=== PATIENT | male | born 1990 | race Caucasian/White ===

== ENCOUNTER 2016-03-26 09:43 | Emergency (ER) | payer OTHER ==
[2016-03-26 09:57] VITALS: BP 124/72
[2016-03-26] MEDS ORDERED: cefTRIAXone VIAL(*) 250 MG VIAL IM ONE (10:20)
[2016-03-26] MEDS ORDERED: Azithromycin TAB* 250 MG PO ONE (10:21)
[2016-03-26] MEDS ORDERED: Lidocaine 1% MPF* 2 ML VIAL ONE (10:31)
--- NOTE | 2016-03-26 10:31 | UC ---
[facility] HPI - HPI Summary HPI Summary: DENTAL PAIN X 7 DAYS , NO FEVER, NO CHILLS PENILE DISCHARGE X 3 DAYS, + DYSURIA, , NO ABDOMINAL PAIN , NO NAUSEA OR VOMITING - History of Current Complaint Chief Complaint: UCDentalProblem Stated Complaint: DENTAL COMPLAINT,PERSONAL Time Seen by Provider: 03/26/16 10:15 Hx Obtained From: Patient Onset/Duration: Gradual Onset, Lasting Days - 5, Still Present Severity: Moderate Aggravating: Chewing Alleviating: Nothing - Allergies/Home Medications Allergies/Adverse Reactions: Allergies Allergy/AdvReac Type Severity Reaction Status Date / Time Meloxicam [From Mobic] Allergy Severe Itching Verified 03/26/16 09:51 Adhesive Tape Allergy Rash Verified 03/26/16 09:51 Tramadol Allergy Rash Verified 03/26/16 09:51 PMH/Surg Hx/FS Hx/Imm Hx Endocrine History Of: Denies: Diabetes, Thyroid Disease, Hyperthyroidism, Hypothyroidism, Dyslipidemia Cardiovascular History Of: Denies: Cardiac Disorders, Hypertension, Pacemaker/ICD, Myocardial Infarction , Congestive Heart Failure, Atrial Fibrillation, Deep Vein Thrombosis, Bleeding Disorders Respiratory History Of: Denies: COPD, Asthma, Bronchitis, Pneumonia, Pulmonary Embolism GI/ History Of: Reports: Gastroesophageal Reflux - He complains of heartburn but does not take anything for it. Denies: Ulcer, Gastrointestinal Bleed, Gall Bladder Disease, Kidney Stones, Diverticulitis, Renal Disease, Urosepsis Neurological History Of: Denies: TIA, CVA, Dementia, Seizures, Migraine Psychological History Of: Denies: Anxiety, Depression, Bipolar Disorder, Schizophrenia, Post Traumatic Stress Disorder Cancer History Of: Denies: Lung Cancer, Colorectal Cancer, Breast Cancer, Prostate Cancer, Cervical Cancer Other History Of: Negative For: HIV, Hepatitis B, Hepatitis C, Anticoagulant Therapy - Surgical History Surgical History: Yes Surgery Procedure, Year, and Place: SX L WRIST FX. Dental extractions 01/15/14. - Family History Known Family History: Positive: Hypertension Family History: no family history of cardio, pulmonary vascular issues - Social History Alcohol Use: None Substance Use Type: None Substance Use Comment - Amount & Last Used: OCCASIONALLY Smoking Status (MU): Heavy Every Day Tobacco Smoker Type: Cigarettes Amount Used/How Often: 1/2 PPD Length of Time of Smoking/Using Tobacco: 10 yrs Have You Smoked in the Last Year: Yes When Did the Patient Quit Smoking/Using Tobacco: taking Chantix - Immunization History Most Recent Influenza Vaccination: Most Recent Tetanus Shot: 2010 Review of Systems Constitutional: Negative Skin: Negative Eyes: Negative ENT: Dental Pain Respiratory: Negative Cardiovascular: Negative Gastrointestinal: Negative Genitourinary: Dysuria All Other Systems Reviewed And Are Negative: Yes Physical Exam Triage Information Reviewed: Yes Appearance: Well-Appearing, No Pain Distress, Well-Nourished Vital Signs: Initial Vital Signs Temp 98.4 F 03/26/16 09:53 Pulse 102 03/26/16 09:53 Resp 16 03/26/16 09:53 BP 124/72 03/26/16 09:53 Pulse Ox 99 03/26/16 09:53 Vital Signs Reviewed: Yes Eyes: Positive: Conjunctiva Clear ENT: Positive: Normal ENT inspection, Hearing grossly normal, Pharynx normal Dental: Positive: Percussion Tenderness @ - #14, Gross Decay/Caries @ - #14 Neck exam: Normal Neck: Positive: Supple, Nontender, No Lymphadenopathy Respiratory: Positive: Chest non-tender, Lungs clear, Normal breath sounds, No respiratory distress Cardiovascular: Positive: RRR, No Murmur, Pulses Normal Abdominal Exam: Normal Abdomen Description: Positive: Nontender, Soft Bowel Sounds: Positive: Present Skin Exam: Normal UC Physical Exam Vital Signs On Initial Exam: Initial Vitals Temp Pulse Resp BP Pulse Ox 98.4 F 102 16 124/72 99 03/26/16 09:53 03/26/16 09:53 03/26/16 09:53 03/26/16 09:53 03/26/16 09:53 - Genitalia Exam Male Genitalia: Circumcised, Urethra With Discharge - CLEAR / WHITE Male Genitalia Cont.: Bilateral: Testicles Descended Dental Complaint Course/Dx - Differential Dx/Diagnosis Provider Diagnoses: DENTAL PAIN. URETHRITIS Discharge - Discharge Plan Condition: Stable Disposition: HOME Prescriptions: Naproxen [Naproxen 500 MG TABS] 500 mg PO BID #20 tab Patient Education Materials: Nonspecific Urethritis in Men (ED), Toothache (ED) Referrals: No Primary Care Phys,NOPCP [Primary Care Provider] - 7 Days Additional Instructions: WILL CHECK FOR GC/ [facility] CALL THE OFFICE IN 2 DAYS FOR THE RESULTS WILL GIVE ROCEPHIN 250 MG IM AND ZITHROMAX 1000 MG PO X1
== END 2016-03-26 11:21 | disposition home or self-care (01) ==
LOC: UCCORT 09:43
DX: N34.2 Other urethritis (principal); K08.89 Other specified disorders of teeth and supporting structures; K21.9 Gastro-esophageal reflux disease without esophagitis; F17.210 Nicotine dependence, cigarettes, uncomplicated; Z88.5 Allergy status to narcotic agent; Z88.6 Allergy status to analgesic agent; Z91.048 Other nonmedicinal substance allergy status
CPT/HCPCS: 87491; 87591; 96372; 99212; A9270-GY; G0463; J0696

== ENCOUNTER 2016-04-07 06:17 | Emergency (ER) | payer OTHER ==
[2016-04-07] MEDS ORDERED: Ketorolac INJ* 30 MG/ML 1 ML VIAL IV ONE (07:01)
[2016-04-07] MEDS ORDERED: traMADol TAB* 50 MG PO ONE (07:10)
[2016-04-07 07:19] LABS: Hematocrit 45 % (42-52); Hemoglobin 14.8 g/dl (14.0-18.0); Mean Corpuscular HGB Conc 33 g/dl (31-36); Mean Corpuscular Hemoglobin 31 pg (27-31); Mean Corpuscular Volume 92 fL (80-94); Mean Platelet Volume 9 um3 (7.4-10.4); Red Blood Count 4.86 10^6/ul (4.0-5.4); Red Cell Distribution Width 13 % (10.5-15); White Blood Count 12.4 10^3/ul (3.5-10.8)
[2016-04-07 07:26] LABS: Albumin 4.2 g/dL (3.2-5.2); BUN/Creatinine Ratio 8.9 (8-20); C Reactive Protein 1.99 mg/L (< 5.00); Calcium 9.4 mg/dL (8.6-10.3); EGFR African American 82.8 (>60); EGFR Non-African American 64.4 (>60); Globulin 2.4 g/dL (2-4); Total Bilirubin 0.4 mg/dL (0.2-1.0); Total Protein 6.6 g/dL (6.4-8.9)
[2016-04-07 07:27] LABS: Urine Bacteria Absent (Absent); Urine Bilirubin Negative (Negative); Urine Glucose Negative (Negative); Urine Nitrite Negative (Negative); Urine Sperm Present (Absent)
--- NOTE | 2016-04-07 07:42 | ED ---
Complaint/Male - History of Current Complaint Chief Complaint: EDUrogenitalProblems Time Seen by Provider: 04/07/16 06:19 Hx Obtained From: Patient Onset/Duration: Gradual Onset, Lasting Days - 2, Still Present Timing: Constant Severity Initially: Moderate Severity Currently: Severe Location: Flank - right Character: Sharp Aggravating Factor(s): Nothing Alleviating Factor(s): Nothing - Allergies/Home Medications Allergies/Adverse Reactions: Allergies Allergy/AdvReac Type Severity Reaction Status Date / Time Meloxicam [From Mobic] Allergy Severe Itching Verified 03/26/16 09:51 Adhesive Tape Allergy Rash Verified 03/26/16 09:51 Tramadol Allergy Rash Verified 03/26/16 09:51 PMH/Surg Hx/FS Hx/Imm Hx Previously Healthy: Yes Endocrine/Hematology History: Denies: Hx Anticoagulant Therapy, Hx Diabetes, Hx Thyroid Disease Cardiovascular History: Denies: Hx Congestive Heart Failure, Hx Deep Vein Thrombosis, Hx Hypertension , Hx Myocardial Infarction, Hx Pacemaker/ICD Respiratory History: Denies: Hx Asthma, Hx Chronic Obstructive Pulmonary Disease (COPD), Hx Lung Cancer, Hx Pneumonia, Hx Pulmonary Embolism GI History: Denies: Hx Gall Bladder Disease, Hx Gastrointestinal Bleed, Hx Ulcer, Hx Urosepsis History: Denies: Hx Kidney Stones, Hx Renal Disease Neurological History: Denies: Hx Dementia, Hx Migraine, Hx Seizures, Hx Transient Ischemic Attacks (TIA) Psychiatric History: Reports: Hx Substance Abuse Denies: Hx Anxiety, Hx Depression, Hx Schizophrenia, Hx Bipolar Disorder - Surgical History Surgery Procedure, Year, and Place: SX L WRIST FX. Dental extractions 01/15/14. Infectious Disease History: No Infectious Disease History: Denies: Hx Clostridium Difficile, Hx Hepatitis, Hx Human Immunodeficiency Virus (HIV), Hx of Known/Suspected MRSA, Hx Shingles, Hx Tuberculosis, Hx Known/ Suspected VRE, Hx Known/Suspected VRSA, History Other Infectious Disease, Traveled Outside the [place] in Last 30 Days - Family History Known Family History: Positive: Hypertension Family History: no family history of cardio, pulmonary vascular issues - Social History Occupation: Employed Part-time Lives: Alone Alcohol Use: None Substance Use Type: Reports: None Substance Use Comment - Amount & Last Used: quit marijuana 7 mo ago Smoking Status (MU): Heavy Every Day Tobacco Smoker Type: Cigarettes Amount Used/How Often: 1/2 PPD Length of Time of Smoking/Using Tobacco: 10 yrs Have You Smoked in the Last Year: Yes Cessation Counseling: Patient Advised to Stop Review Of Systems Constitutional: Negative: Fever Gastrointestinal: Negative: Abdominal Pain, Vomiting Genitourinary: Positive: Other - flank pain All Other Systems Reviewed And Are Negative: Yes Physical Exam Triage Information Reviewed: Yes Vital Signs On Initial Exam: Initial Vitals Temp Pulse Resp BP Pulse Ox 98.0 F 82 16 126/63 99 04/07/16 06:17 04/07/16 06:17 04/07/16 06:17 04/07/16 06:17 04/07/16 06:17 Vital Signs Reviewed: Yes Appearance: Positive: Well-Appearing, No Pain Distress - Patient is resting comfortably on stretcher. He is pleasantly conversational and greets me with a smile and recognition from previous visits., Well-Nourished Skin: Positive: Warm, Skin Color Reflects Adequate Perfusion, Dry, Soft Head/Face: Positive: Normal Head/Face Inspection Eyes: Positive: EOMI, KRYSTYNA, Conjunctiva Clear ENT: Positive: Hearing grossly normal Respiratory/Lung Sounds: Positive: Clear to Auscultation, Breath Sounds Present Cardiovascular: Positive: RRR Abdomen Description: Positive: Nontender, Soft, CVA Tenderness (R) - patient reacts strongly to palpation. Negative: CVA Tenderness (L), Distended, Guarding Bowel Sounds: Positive: Present Musculoskeletal: Positive: Strength/ROM Intact. Negative: Edema Left, Edema Right Neurological: Positive: Sensory/Motor Intact, Alert, Oriented to Person Place, Time, Normal Gait Psychiatric: Positive: Affect/Mood Appropriate AVPU Assessment: Alert Diagnostics - Vital Signs Vital Signs Temp Pulse Resp BP Pulse Ox 04/07/16 06:17 98.0 F 82 16 126/63 99 - Laboratory Lab Results: Lab Results 04/07/16 04/07/16 04/07/16 Range/Units 06:33 06:33 06:33 WBC 12.4 H (3.5-10.8) 10^3/ul RBC 4.86 (4.0-5.4) 10^6/ul Hgb 14.8 (14.0-18.0) g/dl Hct 45 (42-52) % MCV 92 (80-94) fL MCH 31 (27-31) pg MCHC 33 (31-36) g/dl RDW 13 (10.5-15) % Plt Count 195 (150-450) 10^3/ul MPV 9 (7.4-10.4) um3 Neut % (Auto) 70.1 (38-83) % Lymph % (Auto) 20.1 L (25-47) % [place] % (Auto) 8.1 (1-9) % Eos % (Auto) 1.4 (0-6) % Baso % (Auto) 0.3 (0-2) % Absolute Neuts (auto) 8.7 H (1.5-7.7) 10^3/ul Absolute Lymphs (auto) 2.5 (1.0-4.8) 10^3/ul Absolute Monos (auto) 1.0 H (0-0.8) 10^3/ul Absolute Eos (auto) 0.2 (0-0.6) 10^3/ul Absolute Basos (auto) 0 (0-0.2) 10^3/ul Absolute Nucleated RBC 0 10^3/ul Nucleated RBC % 0 Sodium 138 (133-145) mmol/L Potassium 4.0 (3.5-5.0) mmol/L Chloride 106 (101-111) mmol/L Carbon Dioxide 25 (22-32) mmol/L Anion Gap 7 (2-11) mmol/L BUN 12 (6-24) mg/dL Creatinine 1.35 H (0.67-1.17) mg/dL Est GFR ( Amer) 82.8 (>60) Est GFR (Non-Af Amer) 64.4 (>60) BUN/Creatinine Ratio 8.9 (8-20) Glucose 99 (70-100) mg/dL Calcium 9.4 (8.6-10.3) mg/dL Total Bilirubin 0.40 (0.2-1.0) mg/dL AST 19 (13-39) U/L ALT 14 (7-52) U/L Alkaline Phosphatase 46 (34-104) U/L C-Reactive Protein 1.99 (< 5.00) mg/L Total Protein 6.6 (6.4-8.9) g/dL Albumin 4.2 (3.2-5.2) g/dL Globulin 2.4 (2-4) g/dL Albumin/Globulin Ratio 1.8 (1-3) Urine Color Yellow Urine Appearance Cloudy Urine pH 5.0 (5-9) Ur Specific [place] 1.027 (1.010-1.030) Urine Protein 1+(30 mg/dl) H (Negative) Urine Ketones Negative (Negative) Urine Blood 3+ H (Negative) Urine Nitrate Negative (Negative) Urine Bilirubin Negative (Negative) Urine Urobilinogen Negative (Negative) Ur Leukocyte Esterase 2+ H (Negative) Urine WBC (Auto) 3+(>20/hpf) H (Absent) Urine RBC (Auto) 3+(>10/hpf) H (Absent) Ur Squamous Epith Cells Present H (Absent) Uric Acid Crystals Present H (Absent) Urine Bacteria Absent (Absent) Urine Sperm Present H (Absent) Urine Glucose Negative (Negative) Result Diagrams: 04/07/16 06:33 04/07/16 06:33 Lab Statement: Any lab studies that have been ordered have been reviewed, and results considered in the medical decision making process. - Radiology No standard instances Xray Interpretation: No Acute Changes - No calculi noted on this study Radiology Interpretation Completed By: Radiologist - Ultrasound No standard instances Ultrasound Interpretation: Positive (See Comments) Ultrasound Interpretation Completed By: Radiologist - 5mm calculi at the right UVJ with miild hydronephrosis Complaint Male Course/Dx - Course Course Of Treatment: Patient's pain improved without pain medication and he asked to leave, and will follow-up with urology doctors he was given information on from [facility]. - Differential Dx/Diagnosis Differential Diagnosis/HQI/PQRI: Epididymitis, Pyelonephritis, Testicular Torsion, Ureteral Calculi, Urinary Tract Infection Provider Diagnoses: Right renal calculi
--- NOTE | 2016-04-07 08:17 | RAD ---
Indication: Right flank pain. Real-time sonography of the kidneys was performed. The right kidney measures 10.3 x 4.6 x 5.7 cm with mild hydronephrosis. The right ureter is mildly distended. There is a 5 mm calculus in the right ureterovesicular junction. There are bilateral ureteral jets identified however. IMPRESSION: Mild right hydronephrosis with hydroureter. 5 mm calculi is noted in the right ureterovesicular junction.
--- NOTE | 2016-04-07 08:44 | RAD ---
INDICATION: Right flank abdominal pain. COMPARISON: Comparison is made with a prior right renal ultrasound study of the same day. TECHNIQUE: Frontal supine films of the abdomen were obtained. FINDINGS: The small bowel and colon appear nondistended. The calculus at the right ureterovesical junction noted on the ultrasound study is not visualized on this x-ray study. IMPRESSION: NEGATIVE EXAM, THE PREVIOUSLY NOTED RIGHT URETERAL URETEROVESICAL JUNCTION CALCULUS IS NOT VISIBLE ON THIS STUDY.
[2016-04-07 08:45] VITALS: BP 127/53
--- NOTE | 2016-05-20 11:56 | PN ---
Progress Note - Progress Note Note: Disposition at discharge is: stable.
== END 2016-04-07 08:43 | disposition home or self-care (01) ==
LOC: ED 06:17
DX: N20.0 Calculus of kidney (principal); F17.210 Nicotine dependence, cigarettes, uncomplicated; N13.30 Unspecified hydronephrosis
CPT/HCPCS: 36415; 74000; 76775; 80053; 81003; 81015; 85025; 86140; 87086; 99283; A9270-GY

== ENCOUNTER 2016-09-14 20:04 | Emergency (ER) | payer OTHER ==
[2016-09-14 20:11] VITALS: BP 107/60
[2016-09-14] MEDS ORDERED: Benzoin Compound STICK TOPICAL ONE (21:26)
--- NOTE | 2016-09-14 21:26 | UC ---
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 LAST TETANUS 2-3 YEARS AGO. - History Of Current Complaint Chief Complaint: UCLaceration Stated Complaint: FINGER LAC Time Seen by Provider: 09/14/16 20:48 Hx Obtained From: Patient Laceration Location: Finger - RIGHT INDEX Mechanism Of Injury: Sharp Trauma Onset/Duration: Sudden Onset, Lasting Hours, Still Present Severity: Moderate Pain Intensity: 4 Pain Scale Used: 0-10 Numeric Aggravating Factors: Movement - Allergies/Home Medications Allergies/Adverse Reactions: Allergies Allergy/AdvReac Type Severity Reaction Status Date / Time Meloxicam [From [employer]] Allergy Severe Itching Verified 09/14/16 20:11 Adhesive Tape Allergy Rash Verified 09/14/16 20:11 Tramadol Allergy Rash Verified 09/14/16 20:11 Home Medications: Home Medications NK [No Home Medications Reported] 09/14/16 [History Confirmed 09/14/16] PMH/Surg Hx/FS Hx/Imm Hx - Additional Past Medical History Additional PMH: ADHD Other History Of: Negative For: HIV, Hepatitis B, Hepatitis C, Anticoagulant Therapy - Surgical History Surgical History: Yes Surgery Procedure, Year, and Place: SX L WRIST FX. Dental extractions 01/15/14. - Family History Known Family History: Negative: Hypertension Family History: no family history of cardio, pulmonary vascular issues - Social History Alcohol Use: None Substance Use Type: None Substance Use Comment - Amount & Last Used: quit marijuana 7 mo ago Smoking Status (MU): Heavy Every Day Tobacco Smoker Type: Cigarettes Amount Used/How Often: 1/2 PPD Length of Time of Smoking/Using Tobacco: 10 yrs Have You Smoked in the Last Year: Yes When Did the Patient Quit Smoking/Using Tobacco: taking Chantix - Immunization History Most Recent Influenza Vaccination: 2014/2015 Most Recent Tetanus Shot: 2010 Review of Systems Constitutional: Negative Skin: Other - LACERATION RIGHT INDEX FINGER Respiratory: Negative Cardiovascular: Negative Gastrointestinal: Negative Neurovascular: Negative All Other Systems Reviewed And Are Negative: Yes Physical Exam Triage Information Reviewed: Yes Appearance: Well-Appearing, No Pain Distress, Well-Nourished Vital Signs: Initial Vital Signs Temp 97.5 F 09/14/16 20:07 Pulse 82 09/14/16 20:07 Resp 16 09/14/16 20:07 BP 107/60 09/14/16 20:07 Vital Signs Reviewed: Yes Eyes: Positive: Conjunctiva Clear ENT: Positive: Hearing grossly normal Neck: Positive: Supple Respiratory: Positive: No respiratory distress, No accessory muscle use Cardiovascular: Positive: Pulses Normal Abdomen Description: Positive: Soft Musculoskeletal: Positive: ROM Intact, No Edema Neurological: Positive: Alert Psychological: Positive: Age Appropriate Behavior Skin: Positive: Other - 2.5CM LINEAR LACERATION RIGHT INDEX FINGER JUST DISTAL TO MCP JOINT. SLIGHTLY GAPING. NO ACTIVE BLEEDING Laceration Repair - Laceration Repair 1 Description: Linear Laceration Size After Repair: Length (cm) - 2.5CM, Width (mm) - 0MM, Depth (mm) - 2MM Modified For Repair: No Irrigation With Pressure Irrigation Device: Yes Closure Material: SteriStrips Laceration Course/Dx - Course/Dx Course Of Treatment: ADVISED PT THAT SUTURES WERE MORE APPROPRIATE FOR CLOSURE OF THIS WOUND. PT DECLINES. PREFERS GLUE OR STERISTRIPS. WOUND SLIGHTLY GAPING - NOT SUITABLE FOR GLUE. SKIN EDGES PULLED TOGETHER USING STERISTRIPS WITH SATISFACTORY RESULTS. - Differential Dx - Laceration/Wound Provider Diagnoses: LACERATION REPAIR RIGHT INDEX FINGER - STERISTRIPS Discharge - Discharge Plan Condition: Stable Disposition: HOME Patient Education Materials: Finger Laceration (ED) Additional Instructions: THE STERISTRIPS WILL FALL OFF ON THEIR OWN IN THE NEXT 1-2 WEEKS. DO NOT PUT ANY OINTMENT ON TOP OF THEM. DO NOT SUBMERGE IN WATER FOR PROLONGED PERIOD OF TIME. OKAY FOR BRIEF SHOWER AFTER 24 HOURS AND THEN BE SURE TO DRY COMPLETELY. TRY NOT TO BEND YOUR FINGER WHILE YOU ARE HEALING. SPLINT PROVIDED FOR USE NEEDED. SEEK FOLLOW-UP IF YOU DEVELOP SPREADING REDNESS OF THE SKIN, PURULENT DRAINAGE, FEVER, INCREASED PAIN OR ANY OTHER CONCERNING SYMPTOMS. CALL THE NUMBER BELOW FOR ASSISTANCE IN ESTABLISHING WITH A PCP An additional resource available to assist in finding the appropriate physician for your health care needs is the [facility] ([facility]). You may contact them by calling [phone].
== END 2016-09-14 21:45 | disposition home or self-care (01) ==
LOC: UCEAST 20:04
DX: S61.210A Laceration without foreign body of right index finger without damage to nail, initial encounter (principal); W25.XXXA Contact with sharp glass, initial encounter; Y93.G1 Activity, food preparation and clean up; Z23 Encounter for immunization
CPT/HCPCS: 12001; 90471; 99212; 99213; G0463

== ENCOUNTER 2016-10-17 07:10 | Emergency (ER) | payer OTHER ==
[2016-10-17 07:18] VITALS: BP 134/70
--- NOTE | 2016-10-17 10:18 | UC ---
Shea Calderon Alfonso, scribed for Radha Santana DO on 10/17/16 at 0722 . Dental HPI - HPI Summary HPI Summary: This patient is a 26 year old M presenting to [facility] with a chief complaint of dental pain since 2 days ago. He reports that right upper tooth completely broke it is just a hole. Pt rates the worsening throbbing pain 8/10 in severity. Symptoms aggravated and alleviated by nothing. Symptoms slightly alleviated by Ibuprofen and Tylenol (wears off in a half hour). He reports 4000 mg of Ibuprofen a day for two days. He reports consuming 9750 mg of Tylenol a day for two days. He states he has a dentist appointment scheduled in two days. The patient reports insomnia, diaphoresis, and nausea. The patient denies fever , chills, vomiting, abdominal pain, headache, rash, SOB, and CP. Pt admits to tobacco abuse disorder. Denies PMHx of valvular disease. FHX of HTN and DM. Hypertension noted, but due to patients condition. Upon leaving the urgent care , pt stated he was just going to go home. That he was tired. I followed the pt to the door, stopped him and urged him to go to the ed. I again told him the risks associated with tylenol overdose including the risk of permanant liver damage and . I told him that we would send him in an ambulance at no cost to him, but he repeatedly declined the ambulance transfer but stated he would go to the ed. By 09:15am we confirmed that pt made it to ed and blood work was pending. - History of Current Complaint Chief Complaint: UCDentalProblem Stated Complaint: DENTAL PAIN Time Seen by Provider: 10/17/16 07:14 Hx Obtained From: Patient Onset/Duration: Sudden Onset, Lasting Days - 2, Worse Since Severity: Severe Pain Intensity: 8 Pain Scale Used: 0-10 Numeric Aggravating: Nothing Alleviating: Nothing - Allergies/Home Medications Allergies/Adverse Reactions: Allergies Allergy/AdvReac Type Severity Reaction Status Date / Time Meloxicam [From Mobic] Allergy Severe Itching Verified 10/17/16 08:50 Adhesive Tape Allergy Rash Verified 10/17/16 08:50 Tramadol Allergy Rash Verified 10/17/16 08:50 Home Medications: Home Medications Acetaminophen [Tylenol] 3 tab PO Q4HR PRN 10/17/16 [History Confirmed 10/17/16] Ibuprofen [Advil] 1,000 mg PO Q6HR PRN 10/17/16 [History Confirmed 10/17/16] PMH/Surg Hx/FS Hx/Imm Hx Previously Healthy: Yes Other Cardiovascular History: Negative valvular disease Other History Of: Negative For: HIV, Hepatitis B, Hepatitis C, Anticoagulant Therapy - Surgical History Surgical History: Yes Surgery Procedure, Year, and Place: SX L WRIST FX. Dental extractions 01/15/14. - Family History Known Family History: Positive: Hypertension, Diabetes Negative: Cardiac Disease Family History: no family history of cardio, pulmonary vascular issues - Social History Lives: With Family Alcohol Use: None Substance Use Type: None Substance Use Comment - Amount & Last Used: quit marijuana 7 mo ago Smoking Status (MU): Heavy Every Day Tobacco Smoker Type: Cigarettes Amount Used/How Often: 1 PPD Length of Time of Smoking/Using Tobacco: 10 yrs Have You Smoked in the Last Year: Yes When Did the Patient Quit Smoking/Using Tobacco: taking Chantix Household Exposure Type: Cigarettes Cessation Counseling: Patient Advised to Stop - Immunization History Most Recent Influenza Vaccination: Most Recent Tetanus Shot: 2010 Review of Systems Constitutional: Other - Positive diaphoresis; negative fever, chills Skin: Other - Negative rash Respiratory: Other - Negative SOB Cardiovascular: Other - Negative CP Gastrointestinal: Nausea, Other - Negative vomiting, abd pain Neurological: Other - Positive insomnia; negative headache Psychological: Negative All Other Systems Reviewed And Are Negative: Yes Physical Exam Triage Information Reviewed: Yes Appearance: Well-Appearing, No Pain Distress, Well-Nourished Vital Signs: Initial Vital Signs Temp 98.2 F 10/17/16 07:13 Pulse 75 10/17/16 07:13 Resp 18 10/17/16 07:13 BP 134/70 10/17/16 07:13 Pulse Ox 100 10/17/16 07:13 Vital Signs Reviewed: Yes Eyes: Positive: Conjunctiva Clear. Negative: Discharge ENT: Positive: Hearing grossly normal. Negative: Muffled/hoarse voice Dental: Positive: Dental Fracture @ - Fractured canine tooth noted in upper right. Neck exam: Normal Neck: Positive: Supple Respiratory: Positive: Lungs clear, Normal breath sounds, No respiratory distress, No accessory muscle use Cardiovascular: Positive: RRR, No Murmur Abdomen Description: Positive: Nontender, Soft. Negative: Distended, Guarding Musculoskeletal Exam: Normal Neurological: Positive: Alert, Muscle Tone Normal Psychological Exam: Normal Psychological: Positive: Age Appropriate Behavior Skin Exam: Normal, Other - Warm, dry, normal color Dental Complaint Course/Dx - Course Course Of Treatment: elevated bp noted. likely due to pt condition. - Differential Dx/Diagnosis Differential Diagnosis/Dx: Dental Abscess, Dental Caries, Fractured Tooth, TMJ Syndrome, Other - tylenol toxicity Provider Diagnoses: toothache, tylenol toxicity Discharge - Discharge Plan Condition: Stable Disposition: AGAINST MEDICAL ADVICE Patient Education Materials: Toothache (ED) Referrals: No Primary Care Phys,NOPCP [Primary Care Provider] - Additional Instructions: WE ARE VERY CONCERNED ABOUT THE AMOUNT OF TYLENOL YOU TAKEN. IT IS VERY IMPORTANT THAT YOU GO TO THE EMERGENCY DEPARTMENT FOR COMPLETE EVALUATION IMMEDIATELY. We have recommended ambulance transfer. You have declined. The risks associated with your condition included increased pain, worsening infection, perment liver damage, and . It is very important you go to the hospital immediately without stopping on the way. The documentation as recorded by the Shea mnotoya Alfonso accurately reflects the service I personally performed and the decisions made by me, Radha Santana DO.
== END 2016-10-17 08:27 | disposition home or self-care (01) ==
LOC: UCEAST 07:10
DX: K08.89 Other specified disorders of teeth and supporting structures (principal); T39.1X5A Adverse effect of 4-Aminophenol derivatives, initial encounter; Z88.5 Allergy status to narcotic agent; F17.290 Nicotine dependence, other tobacco product, uncomplicated
CPT/HCPCS: 99211; G0463

== ENCOUNTER 2016-10-17 08:48 | Emergency (ER) | payer OTHER ==
[2016-10-17] MEDS ORDERED: NS 0.9% 1000 ML* 1,000 ML IV ONE (09:26)
[2016-10-17 09:44] LABS: Hematocrit 45 % (42-52); Hemoglobin 14.9 g/dl (14.0-18.0); Mean Corpuscular HGB Conc 33 g/dl (31-36); Mean Corpuscular Hemoglobin 31 pg (27-31); Mean Corpuscular Volume 94 fL (80-94); Mean Platelet Volume 8 um3 (7.4-10.4); Red Cell Distribution Width 14 % (10.5-15); White Blood Count 8.4 10^3/ul (3.5-10.8)
[2016-10-17] MEDS ORDERED: Amoxicillin PO (*) 250 MG CAP PO ONE (09:47)
--- NOTE | 2016-10-17 09:54 | ED ---
Throat Pain/Nasal Congestion - HPI Summary HPI Summary: 26 male presents [facility] with complaints of right upper tooth pain "right upper tooth completely broke it is just a hole and throbbing that began Monday after it breaking off. Patient states he since has had severe pain and is unable to eat/drink due to the sensitivity. Patient has had pain like this before when he did the same thing to a different tooth years ago. Patient states he has been taking ~ 5,200mg of tylenol a day along with 4,000mg of ibuprofen. Alternating every 4 hours for the past 2.5 days which is of concern and reason he was sent from . Has a dentist appointment Monday however went to urgent care for concern of infection and in need of an antibiotic. Patient states he last had ibuprofen this morning around 8am ~1000mg but has not taken Tylenol since yesterday. Denies any abdominal pain, nausea, fever/ chills, redness, ascbess and vomiting. Has been using bathroom normally. No PMHx. - History of Current Complaint Chief Complaint: EDDentalPain Time Seen by Provider: 10/17/16 09:09 Hx Obtained From: Patient Onset/Duration: Sudden Onset, Lasting Days, Still Present, Worse Since Severity: Severe Associated Signs And Symptoms: Positive: Negative Cough: None - Allergies/Home Medications Allergies/Adverse Reactions: Allergies Allergy/AdvReac Type Severity Reaction Status Date / Time Meloxicam [From Mob] Allergy Severe Itching Verified 10/17/16 08:50 Adhesive Tape Allergy Rash Verified 10/17/16 08:50 Tramadol Allergy Rash Verified 10/17/16 08:50 PMH/Surg Hx/FS Hx/Imm Hx Endocrine/Hematology History: Denies: Hx Anticoagulant Therapy, Hx Diabetes, Hx Thyroid Disease Cardiovascular History: Denies: Hx Congestive Heart Failure, Hx Deep Vein Thrombosis, Hx Hypertension , Hx Myocardial Infarction, Hx Pacemaker/ICD Respiratory History: Denies: Hx Asthma, Hx Chronic Obstructive Pulmonary Disease (COPD), Hx Lung Cancer, Hx Pneumonia, Hx Pulmonary Embolism GI History: Denies: Hx Gall Bladder Disease, Hx Gastrointestinal Bleed, Hx Ulcer, Hx Urosepsis History: Denies: Hx Kidney Stones, Hx Renal Disease Neurological History: Denies: Hx Dementia, Hx Migraine, Hx Seizures, Hx Transient Ischemic Attacks (TIA) Psychiatric History: Reports: Hx Substance Abuse Denies: Hx Anxiety, Hx Depression, Hx Schizophrenia, Hx Bipolar Disorder - Surgical History Surgery Procedure, Year, and Place: SX L WRIST FX. Dental extractions 01/15/14. - Immunization History Immunizations Up to Date: Yes Infectious Disease History: No Infectious Disease History: Denies: Hx Clostridium Difficile, Hx Hepatitis, Hx Human Immunodeficiency Virus (HIV), Hx of Known/Suspected MRSA, Hx Shingles, Hx Tuberculosis, Hx Known/ Suspected VRE, Hx Known/Suspected VRSA, History Other Infectious Disease, Traveled Outside the [place] in Last 30 Days - Family History Known Family History: Negative: Hypertension Family History: no family history of cardio, pulmonary vascular issues - Social History Alcohol Use: None Substance Use Type: Reports: None Substance Use Comment - Amount & Last Used: quit marijuana 7 mo ago Smoking Status (MU): Heavy Every Day Tobacco Smoker Type: Cigarettes Amount Used/How Often: 1 PPD Length of Time of Smoking/Using Tobacco: 10 yrs Have You Smoked in the Last Year: Yes Review of Systems Constitutional: Negative Eyes: Negative Positive: Dental Pain Cardiovascular: Negative Respiratory: Negative Gastrointestinal: Negative Musculoskeletal: Negative Skin: Negative Neurological: Negative All Other Systems Reviewed And Are Negative: Yes Physical Exam Triage Information Reviewed: Yes Vital Signs On Initial Exam: Initial Vitals Temp Pulse Resp BP Pulse Ox 98.2 F 79 16 147/90 99 10/17/16 08:50 10/17/16 08:50 10/17/16 08:50 10/17/16 08:50 10/17/16 08:50 Vital Signs Reviewed: Yes Appearance: Positive: Well-Appearing, No Pain Distress, Well-Nourished Skin: Positive: Warm, Skin Color Reflects Adequate Perfusion, Dry. Negative: Soft, Pale, Erythema @ Head/Face: Positive: Normal Head/Face Inspection Eyes: Positive: Normal, Conjunctiva Clear ENT: Positive: Hearing grossly normal, Pharynx normal. Negative: TMs normal, TM bulging, Trismus, Muffled/hoarse voice Dental: Positive: Percussion Tenderness @ - right maxillary, Gross Decay/Caries @, Dental Fracture @ - right upper canine exposed nerve area at gums, tooth completely missing. exquistetly tender. multiple other dental fractures noted however of no concern at this time. Negative: Abscess @, Cellulitis @, Cervical Lymphadenopathy Neck: Positive: Supple, Nontender, No Lymphadenopathy Respiratory/Lung Sounds: Positive: Clear to Auscultation, Breath Sounds Present. Negative: Rales, Rhonchi, Wheezes Cardiovascular: Positive: Normal, RRR, Pulses are Symmetrical in both Upper and Lower Extremities. Negative: Murmur, Rub Abdomen Description: Positive: Nontender, No Organomegaly, Soft. Negative: Bruit, CVA Tenderness (R), CVA Tenderness (L), Distended, Guarding, McBurney's Point Tenderness, Peritoneal Signs, Pulsatile Mass Bowel Sounds: Positive: Present Musculoskeletal: Positive: Normal, Strength/ROM Intact Neurological: Positive: Normal, Sensory/Motor Intact, Alert, Oriented to Person Place, Time Psychiatric: Positive: Affect/Mood Appropriate - Elijah Coma Scale Coma Scale Total: 15 Diagnostics - Vital Signs Vital Signs Temp Pulse Resp BP Pulse Ox 10/17/16 09:15 98.2 F 79 16 147/90 98 10/17/16 08:50 98.2 F 79 16 147/90 99 - Laboratory Lab Results: Lab Results 10/17/16 Range/Units 09:30 WBC 8.4 (3.5-10.8) 10^3/ul RBC 4.80 (4.0-5.4) 10^6/ul Hgb 14.9 (14.0-18.0) g/dl Hct 45 (42-52) % MCV 94 (80-94) fL MCH 31 (27-31) pg MCHC 33 (31-36) g/dl RDW 14 (10.5-15) % Plt Count 163 (150-450) 10^3/ul MPV 8 (7.4-10.4) um3 Neut % (Auto) 69.9 (38-83) % Lymph % (Auto) 14.9 L (25-47) % Frontier % (Auto) 13.9 H (1-9) % Eos % (Auto) 0.7 (0-6) % Baso % (Auto) 0.6 (0-2) % Absolute Neuts (auto) 5.9 (1.5-7.7) 10^3/ul Absolute Lymphs (auto) 1.2 (1.0-4.8) 10^3/ul Absolute Monos (auto) 1.2 H (0-0.8) 10^3/ul Absolute Eos (auto) 0.1 (0-0.6) 10^3/ul Absolute Basos (auto) 0.1 (0-0.2) 10^3/ul Absolute Nucleated RBC 0 10^3/ul Nucleated RBC % 0 Result Diagrams: 10/17/16 09:30 10/17/16 09:30 Lab Statement: Any lab studies that have been ordered have been reviewed, and results considered in the medical decision making process. EENT Course/Dx - Course Course Of Treatment: labs obtained to check liver and kidney function after taking too much tylenol/ibuprofen for his dental pain. Denies any other complaints or symptoms of pain other than dental pain. Given normal saline bolus however refused to obtain as he just wanted to leave once lab results were recieved and normal. No concern for acetaminophen toxicity or liver/kidney damage. Educated on proper use of tylenol and ibuprofen. Given pain management and to only take directed amount. amoxicillin for infection. drink plenty of fluids. follow up dentist monday. Aware of worsening signs and symptoms to watch out for. - Differential Diagnoses Differential Diagnoses: Dental Abscess, Dental Caries, Fractured Tooth - Diagnoses Provider Diagnoses: Fractured tooth, Pain, dental Discharge - Discharge Plan Condition: Stable Disposition: HOME Prescriptions: Amoxicillin PO (*) [Amoxicillin 500 MG CAP*] 500 mg PO Q12H #19 cap HYDROcodone/ACETAMIN 5-325 MG* [[place] 5-325 TAB*] 1 tab PO Q6H PRN #20 tab MDD 3 PRN Reason: Pain Patient Education Materials: Toothache (ED) Referrals: [facility] [Outside] No Primary Care Phys,NOPCP [Primary Care Provider] - Additional Instructions: Please do not take over the directed dose of tylenol or ibuprofen for pain. Take prescribed pain medication for pain every 6 hours you may take no more than 600mg of ibuprofen in between doses. Take with food. Take prescribed antibiotic for infection. Drink plenty of fluids for the next couple of days. Follow up with dentist on Monday. If symptoms worsen or new symptoms develop please seek medical attention promptly.
[2016-10-17 10:01] LABS: ALT 21 U/L (7-52); AST 19 U/L (13-39); Albumin 3.9 g/dL (3.2-5.2); Alkaline Phosphatase 42 U/L (34-104); Anion Gap 4 mmol/L (2-11); BUN/Creatinine Ratio 13.9 (8-20); Blood Urea Nitrogen 14 mg/dL (6-24); CO2 Carbon Dioxide 27 mmol/L (22-32); Chloride 105 mmol/L (101-111); EGFR African American 114.8 (>60); EGFR Non-African American 89.3 (>60); Globulin 2.5 g/dL (2-4); Glucose 109 mg/dL (70-100); Potassium 4.5 mmol/L (3.5-5.0); Sodium 136 mmol/L (133-145); Total Protein 6.4 g/dL (6.4-8.9)
[2016-10-17 10:28] LABS: Acetaminophen < 15 mcg/mL
[2016-10-17 10:47] VITALS: BP 144/82
== END 2016-10-17 10:45 | disposition home or self-care (01) ==
LOC: ED 08:48
DX: S02.5XXA Fracture of tooth (traumatic), initial encounter for closed fracture (principal); K08.89 Other specified disorders of teeth and supporting structures; F17.210 Nicotine dependence, cigarettes, uncomplicated
CPT/HCPCS: 36415; 80053; 80329; 85025; 99282; A9270-GY; G0480

== ENCOUNTER 2016-10-18 06:59 | Emergency (ER) | payer OTHER ==
[2016-10-18] MEDS ORDERED: Ketorolac INJ* 60 MG/2 ML VIAL IM ONE (07:46)
[2016-10-18] MEDS ORDERED: Clindamycin CAP* 150 MG PO ONE (07:46)
[2016-10-18 08:08] VITALS: BP 146/76
--- NOTE | 2016-10-18 08:17 | ED ---
Shea Calderon Alfonso, scribed for Justo Macias MD on 10/18/16 at 0740 . Complex/Multi-Sys Presentation - HPI Summary HPI Summary: This patient is a 26 year old M BIBA to [facility] with a chief complaint of right upper dental pain since three days ago. He states the pain is progressively worsening. The patient rates the pain 8/10 in severity currently. Symptoms aggravated and alleviated by nothing. Patient reports a headache and right sided facial swelling. He presented to [facility] and [facility] yesterday for this complaint. - History Of Current Complaint Chief Complaint: EDDentalPain Hx Obtained From: Patient Onset/Duration: Sudden Onset, Lasting Days - 3, Worse Since Timing: Constant Severity Currently: Moderate Severity Initially: Moderate Aggravating Factor(s): Nothing Alleviating Factor(s): Nothing Associated Signs And Symptoms: Positive: Other - Positive headache and right sided facial swelling - Allergies/Home Medications Allergies/Adverse Reactions: Allergies Allergy/AdvReac Type Severity Reaction Status Date / Time Meloxicam [From Mobic] Allergy Severe Itching Verified 10/17/16 08:50 Adhesive Tape Allergy Rash Verified 10/17/16 08:50 Tramadol Allergy Rash Verified 10/17/16 08:50 PMH/Surg Hx/FS Hx/Imm Hx Endocrine/Hematology History: Denies: Hx Anticoagulant Therapy, Hx Diabetes, Hx Thyroid Disease Cardiovascular History: Denies: Hx Congestive Heart Failure, Hx Deep Vein Thrombosis, Hx Hypertension , Hx Myocardial Infarction, Hx Pacemaker/ICD Respiratory History: Denies: Hx Asthma, Hx Chronic Obstructive Pulmonary Disease (COPD), Hx Lung Cancer, Hx Pneumonia, Hx Pulmonary Embolism GI History: Denies: Hx Gall Bladder Disease, Hx Gastrointestinal Bleed, Hx Ulcer, Hx Urosepsis History: Denies: Hx Kidney Stones, Hx Renal Disease Neurological History: Denies: Hx Dementia, Hx Migraine, Hx Seizures, Hx Transient Ischemic Attacks (TIA) Psychiatric History: Reports: Hx Substance Abuse Denies: Hx Anxiety, Hx Depression, Hx Schizophrenia, Hx Bipolar Disorder - Surgical History Surgery Procedure, Year, and Place: SX L WRIST FX. Dental extractions 01/15/14. Infectious Disease History: No Infectious Disease History: Denies: Hx Clostridium Difficile, Hx Hepatitis, Hx Human Immunodeficiency Virus (HIV), Hx of Known/Suspected MRSA, Hx Shingles, Hx Tuberculosis, Hx Known/ Suspected VRE, Hx Known/Suspected VRSA, History Other Infectious Disease, Traveled Outside the [place] in Last 30 Days - Family History Known Family History: Positive: Hypertension, Diabetes Negative: Cardiac Disease Family History: no family history of cardio, pulmonary vascular issues - Social History Alcohol Use: None Substance Use Type: Reports: None Substance Use Comment - Amount & Last Used: quit marijuana 7 mo ago Smoking Status (MU): Heavy Every Day Tobacco Smoker Type: Cigarettes Amount Used/How Often: 1 PPD Length of Time of Smoking/Using Tobacco: 10 yrs Have You Smoked in the Last Year: Yes Review of Systems Positive: Dental Pain - Right upper, Other - Positive right sided facial swelling Positive: Headache All Other Systems Reviewed And Are Negative: Yes Physical Exam - Summary Physical Exam Summary: VITAL SIGNS: Reviewed. GENERAL: Patient is a well-developed and nourished male who is lying comfortable in the stretcher. Patient is not in any acute respiratory distress. HEAD AND FACE: No signs of trauma. No ecchymosis, hematomas or skull depressions. No sinus tenderness. EYES: PERRLA, EOMI x 2, No injected conjunctiva, no nystagmus. EARS: Hearing grossly intact. Ear canals and tympanic membranes are within normal limits. MOUTH: Diffuse dental cavities. Swelling in the right side of the face. No trismus. No swelling tongue. No swelling of the lips. Oropharynx within normal limits. NECK: Supple, trachea is midline, no adenopathy, no JVD, no carotid bruit, no c- spine tenderness, neck with full ROM. CHEST: Symmetric, no tenderness at palpation LUNGS: Clear to auscultation bilaterally. No wheezing or crackles. CVS: Regular rate and rhythm, S1 and S2 present, no murmurs or gallops appreciated. ABDOMEN: Soft, non-tender. No signs of distention. No rebound no guarding, and no masses palpated. Bowel sounds are normal. EXTREMITIES: FROM in all major joints, no edema, no cyanosis or clubbing. NEURO: Alert and oriented x 3. No acute neurological deficits. Speech is normal and follows commands. SKIN: Dry and warm Triage Information Reviewed: Yes Vital Signs On Initial Exam: Initial Vitals Temp Pulse Resp BP Pulse Ox 101.2 F 76 16 142/69 97 10/18/16 07:12 10/18/16 07:12 10/18/16 07:12 10/18/16 07:12 10/18/16 07:12 Vital Signs Reviewed: Yes Diagnostics - Vital Signs Vital Signs Temp Pulse Resp BP Pulse Ox 10/18/16 07:12 101.2 F 76 16 142/69 97 - Laboratory Lab Statement: Any lab studies that have been ordered have been reviewed, and results considered in the medical decision making process. Complex Multi-Symp Course/Dx Course Of Treatment: This patient is a 26 year old M BIBA to [facility] with a chief complaint of right upper dental pain since three days ago. He states the pain is progressively worsening. The patient rates the pain 8/10 in severity currently. Symptoms aggravated and alleviated by nothing. Patient reports a headache and right sided facial swelling. He presented to [facility] and [facility] yesterday for this complaint. Patient with multiple visit for dental pain. Patient has an appointment with dentist today at 1PM. He has slight right facial swelling. Possible he is developing an abscess. He was given Toradol and placed in Clindamycin and he will discontinue Amoxicillin. He emphasized in the importance to f/u with dentist today. He understands and agrees. I discussed all the findings and test results with the patient. Patient was instructed to return to the emergency room immediately if any of the symptoms return or worsens. Plan of care was discussed with the patient and understands and agrees. All questions were answered at patient satisfaction. There were no further complaints or concerns. Lung exam before discharge: CTA B/L. Good air exchange. No wheezing or crackles heard. CVS: S1 and S2 present. No murmurs appreciated. Patient is alert and oriented x 3. Patient is hemodynamically stable. Patient will be discharged home with follow up PCP in the next 2-3 days - Diagnoses Provider Diagnoses: Dental abscess, Dental cavities, Pain, dental Discharge - Discharge Plan Condition: Stable Disposition: HOME Prescriptions: Clindamycin HCl [Clindamycin 150 MG CAP*] 150 mg PO QID #28 cap Patient Education Materials: Dental Abscess (ED) Referrals: [facility] [Outside] - 2 Days The documentation as recorded by the Shea montoya Alfonso accurately reflects the service I personally performed and the decisions made by me, Justo Macias MD.
== END 2016-10-18 08:08 | disposition home or self-care (01) ==
LOC: ED 06:59
DX: K04.7 Periapical abscess without sinus (principal); K02.9 Dental caries, unspecified; F17.210 Nicotine dependence, cigarettes, uncomplicated
CPT/HCPCS: 96372; 99282; A9270-GY; J1885

== ENCOUNTER 2016-11-14 00:36 | Inpatient (IN) | payer OTHER ==
[2016-11-14 01:26] LABS: Hematocrit 43 % (42-52); Hemoglobin 14.8 g/dl (14.0-18.0); Mean Corpuscular HGB Conc 34 g/dl (31-36); Mean Corpuscular Hemoglobin 31 pg (27-31); Mean Corpuscular Volume 90 fL (80-94); Mean Platelet Volume 8 um3 (7.4-10.4); Red Blood Count 4.81 10^6/ul (4.0-5.4); Red Cell Distribution Width 13 % (10.5-15)
[2016-11-14 01:31] LABS: Urine Bacteria Absent (Absent); Urine Bilirubin Negative (Negative); Urine Glucose Negative (Negative); Urine Nitrite Negative (Negative)
[2016-11-14 01:39] LABS: ALT 15 U/L (7-52); AST 21 U/L (13-39); Albumin 4.2 g/dL (3.2-5.2); Alkaline Phosphatase 46 U/L (34-104); Anion Gap 7 mmol/L (2-11); Blood Urea Nitrogen 13 mg/dL (6-24); CO2 Carbon Dioxide 27 mmol/L (22-32); Calcium 9.5 mg/dL (8.6-10.3); Chloride 103 mmol/L (101-111); EGFR Non-African American 74.6 (>60); Globulin 2.5 g/dL (2-4); Glucose 125 mg/dL (70-100); Potassium 3.8 mmol/L (3.5-5.0); Sodium 137 mmol/L (133-145); Total Protein 6.7 g/dL (6.4-8.9)
[2016-11-14 01:40] LABS: Benzodiazepine Urine Screen None Detected (None Detect)
[2016-11-14 01:42] LABS: Acetaminophen < 15 mcg/mL; Alcohol < 10 mg/dL (<10); Salicylate < 2.50 mg/dL (<30)
[2016-11-14 01:53] LABS: TSH (Thyroid Stimulating Horm) 1.23 mcIU/mL (0.34-5.60)
--- NOTE | 2016-11-14 07:02 | ED ---
He Calderon Rebecca, scribed for Ananth Peres MD on 11/14/16 at 0202 . Psychiatric Complaint - HPI Summary HPI Summary: Pt is a 26 y/o M BIB police as a 941 due to suspected SIs. States that his girlfriend called the police after being concerned that he was suicidal, though he denies SIs. Per medical records, pt has a PMHx of substance abuse. - History Of Current Complaint Chief Complaint: EDMentalHealth Time Seen by Provider: 11/14/16 00:39 Hx Obtained From: Patient, Medical Records Aggravating Factor(s): Nothing Alleviating Factor(s): Nothing Related History: Positive For: Prior Psychiatric Issues - Hx substance abuse Has Suicidal: Denies: Thoughts - Allergies/Home Medications Allergies/Adverse Reactions: Allergies Allergy/AdvReac Type Severity Reaction Status Date / Time Meloxicam [From Mobic] Allergy Severe Itching Verified 10/17/16 08:50 Adhesive Tape Allergy Rash Verified 10/17/16 08:50 Tramadol Allergy Rash Verified 10/17/16 08:50 PMH/Surg Hx/FS Hx/Imm Hx Endocrine/Hematology History: Denies: Hx Anticoagulant Therapy, Hx Diabetes, Hx Thyroid Disease Cardiovascular History: Denies: Hx Congestive Heart Failure, Hx Deep Vein Thrombosis, Hx Hypertension , Hx Myocardial Infarction, Hx Pacemaker/ICD Respiratory History: Denies: Hx Asthma, Hx Chronic Obstructive Pulmonary Disease (COPD), Hx Lung Cancer, Hx Pneumonia, Hx Pulmonary Embolism GI History: Denies: Hx Gall Bladder Disease, Hx Gastrointestinal Bleed, Hx Ulcer, Hx Urosepsis History: Denies: Hx Kidney Stones, Hx Renal Disease Neurological History: Denies: Hx Dementia, Hx Migraine, Hx Seizures, Hx Transient Ischemic Attacks (TIA) Psychiatric History: Reports: Hx Substance Abuse Denies: Hx Anxiety, Hx Depression, Hx Schizophrenia, Hx Bipolar Disorder - Surgical History Surgery Procedure, Year, and Place: SX L WRIST FX. Dental extractions 01/15/14. Infectious Disease History: No Infectious Disease History: Denies: Hx Clostridium Difficile, Hx Hepatitis, Hx Human Immunodeficiency Virus (HIV), Hx of Known/Suspected MRSA, Hx Shingles, Hx Tuberculosis, Hx Known/ Suspected VRE, Hx Known/Suspected VRSA, History Other Infectious Disease, Traveled Outside the [place] in Last 30 Days - Family History Known Family History: Positive: Hypertension, Diabetes Negative: Cardiac Disease Family History: no family history of cardio, pulmonary vascular issues - Social History Alcohol Use: None Substance Use Type: Reports: Marijuana Substance Use Comment - Amount & Last Used: quit marijuana 7 mo ago Smoking Status (MU): Heavy Every Day Tobacco Smoker Type: Cigarettes Amount Used/How Often: 1 PPD Length of Time of Smoking/Using Tobacco: 10 yrs Have You Smoked in the Last Year: Yes Review of Systems Negative: Fever Positive: Other - Denies SIs All Other Systems Reviewed And Are Negative: Yes Physical Exam Triage Information Reviewed: Yes Vital Signs On Initial Exam: Initial Vitals Temp Pulse Resp BP Pulse Ox 99.6 F 74 18 107/44 97 11/14/16 01:24 11/14/16 01:24 11/14/16 01:24 11/14/16 01:24 11/14/16 01:24 Vital Signs Reviewed: Yes Appearance: Positive: Well-Appearing Skin: Positive: Warm Head/Face: Positive: Normal Head/Face Inspection Eyes: Positive: KRYSTYNA ENT: Positive: Hearing grossly normal Neck: Positive: Supple Respiratory/Lung Sounds: Positive: Breath Sounds Present Cardiovascular: Positive: RRR Abdomen Description: Positive: Nontender, Soft Bowel Sounds: Positive: Present Musculoskeletal: Positive: Strength/ROM Intact Neurological: Positive: Alert, Oriented to Person Place, Time - Elijah Coma Scale Coma Scale Total: 15 Diagnostics - Vital Signs Vital Signs Temp Pulse Resp BP Pulse Ox 11/14/16 01:24 99.6 F 74 18 107/44 97 - Laboratory Lab Results: Lab Results 11/14/16 11/14/16 11/14/16 Range/Units 01:05 01:05 01:05 WBC 8.0 (3.5-10.8) 10^3/ul RBC 4.81 (4.0-5.4) 10^6/ul Hgb 14.8 (14.0-18.0) g/dl Hct 43 (42-52) % MCV 90 (80-94) fL MCH 31 (27-31) pg MCHC 34 (31-36) g/dl RDW 13 (10.5-15) % Plt Count 158 (150-450) 10^3/ul MPV 8 (7.4-10.4) um3 Neut % (Auto) 51.2 (38-83) % Lymph % (Auto) 35.5 (25-47) % [place] % (Auto) 11.0 H (1-9) % Eos % (Auto) 1.9 (0-6) % Baso % (Auto) 0.4 (0-2) % Absolute Neuts (auto) 4.1 (1.5-7.7) 10^3/ul Absolute Lymphs (auto) 2.8 (1.0-4.8) 10^3/ul Absolute Monos (auto) 0.9 H (0-0.8) 10^3/ul Absolute Eos (auto) 0.2 (0-0.6) 10^3/ul Absolute Basos (auto) 0 (0-0.2) 10^3/ul Absolute Nucleated RBC 0.01 10^3/ul Nucleated RBC % 0.1 Sodium 137 (133-145) mmol/L Potassium 3.8 (3.5-5.0) mmol/L Chloride 103 (101-111) mmol/L Carbon Dioxide 27 (22-32) mmol/L Anion Gap 7 (2-11) mmol/L BUN 13 (6-24) mg/dL Creatinine 1.18 H (0.67-1.17) mg/dL Est GFR ( Amer) 96.0 (>60) Est GFR (Non-Af Amer) 74.6 (>60) BUN/Creatinine Ratio 11.0 (8-20) Glucose 125 H (70-100) mg/dL Calcium 9.5 (8.6-10.3) mg/dL Total Bilirubin 0.40 (0.2-1.0) mg/dL AST 21 (13-39) U/L ALT 15 (7-52) U/L Alkaline Phosphatase 46 (34-104) U/L Total Protein 6.7 (6.4-8.9) g/dL Albumin 4.2 (3.2-5.2) g/dL Globulin 2.5 (2-4) g/dL Albumin/Globulin Ratio 1.7 (1-3) TSH 1.23 (0.34-5.60) mcIU/mL Urine Color Urine Appearance Urine pH (5-9) Ur Specific [place] (1.010-1.030) Urine Protein (Negative) Urine Ketones (Negative) Urine Blood (Negative) Urine Nitrate (Negative) Urine Bilirubin (Negative) Urine Urobilinogen (Negative) Ur Leukocyte Esterase (Negative) Urine WBC (Auto) (Absent) Urine RBC (Auto) (Absent) Urine Bacteria (Absent) Urine Glucose (Negative) Urine Ascorbic Acid (Negative) Salicylates < 2.50 (<30) mg/dL Urine Opiates Screen Presumptive positive H (None Detect) Acetaminophen < 15 mcg/mL Ur Barbiturates Screen None detected (None Detect) Ur Phencyclidine Scrn None detected (None Detect) Ur Amphetamines Screen None detected (None Detect) U Benzodiazepines Scrn None detected (None Detect) Urine Cocaine Screen None detected (None Detect) U Cannabinoids Screen Presumptive positive H (None Detect) Serum Alcohol < 10 (<10) mg/dL 11/14/16 Range/Units 01:05 WBC (3.5-10.8) 10^3/ul RBC (4.0-5.4) 10^6/ul Hgb (14.0-18.0) g/dl Hct (42-52) % MCV (80-94) fL MCH (27-31) pg MCHC (31-36) g/dl RDW (10.5-15) % Plt Count (150-450) 10^3/ul MPV (7.4-10.4) um3 Neut % (Auto) (38-83) % Lymph % (Auto) (25-47) % [place] % (Auto) (1-9) % Eos % (Auto) (0-6) % Baso % (Auto) (0-2) % Absolute Neuts (auto) (1.5-7.7) 10^3/ul Absolute Lymphs (auto) (1.0-4.8) 10^3/ul Absolute Monos (auto) (0-0.8) 10^3/ul Absolute Eos (auto) (0-0.6) 10^3/ul Absolute Basos (auto) (0-0.2) 10^3/ul Absolute Nucleated RBC 10^3/ul Nucleated RBC % Sodium (133-145) mmol/L Potassium (3.5-5.0) mmol/L Chloride (101-111) mmol/L Carbon Dioxide (22-32) mmol/L Anion Gap (2-11) mmol/L BUN (6-24) mg/dL Creatinine (0.67-1.17) mg/dL Est GFR ( Amer) (>60) Est GFR (Non-Af Amer) (>60) BUN/Creatinine Ratio (8-20) Glucose (70-100) mg/dL Calcium (8.6-10.3) mg/dL Total Bilirubin (0.2-1.0) mg/dL AST (13-39) U/L ALT (7-52) U/L Alkaline Phosphatase (34-104) U/L Total Protein (6.4-8.9) g/dL Albumin (3.2-5.2) g/dL Globulin (2-4) g/dL Albumin/Globulin Ratio (1-3) TSH (0.34-5.60) mcIU/mL Urine Color Yellow Urine Appearance Clear Urine pH 5.0 (5-9) Ur Specific [place] 1.027 (1.010-1.030) Urine Protein 2+(100 mg/dl) H (Negative) Urine Ketones Negative (Negative) Urine Blood Negative (Negative) Urine Nitrate Negative (Negative) Urine Bilirubin Negative (Negative) Urine Urobilinogen Negative (Negative) Ur Leukocyte Esterase Trace H (Negative) Urine WBC (Auto) 1+(6-10/hpf) H (Absent) Urine RBC (Auto) 1+(3-5/hpf) H (Absent) Urine Bacteria Absent (Absent) Urine Glucose Negative (Negative) Urine Ascorbic Acid * H (Negative) Salicylates (<30) mg/dL Urine Opiates Screen (None Detect) Acetaminophen mcg/mL Ur Barbiturates Screen (None Detect) Ur Phencyclidine Scrn (None Detect) Ur Amphetamines Screen (None Detect) U Benzodiazepines Scrn (None Detect) Urine Cocaine Screen (None Detect) U Cannabinoids Screen (None Detect) Serum Alcohol (<10) mg/dL Result Diagrams: 11/14/16 01:05 11/14/16 01:05 Lab Statement: Any lab studies that have been ordered have been reviewed, and results considered in the medical decision making process. Course/Dx - Course Assessment/Plan: Pt is a 26 y/o M BIB police as a 941 due to suspected SIs. States that his girlfriend called the police after being concerned that he was suicidal, though he denies SIs. Per medical records, pt has a PMHx of substance abuse. After M[facility] and consultation with Dr. Walden (psychiatrist) it has been determined that the pt will be admitted. Due to the MHU being full, pt will be transferred. - Differential Dx/Clinical Impression Provider Diagnosis: Psychosis Discharge - Discharge Plan Condition: Stable Disposition: TRANS HIGHER LVL OF CARE FAC Referrals: No Primary Care Phys,NOPCP [Primary Care Provider] - The documentation as recorded by the He montoya Rebecca accurately reflects the service I personally performed and the decisions made by , Ananth Peres MD.
[2016-11-14] MEDS ORDERED: LORazepam TAB(*) 1 MG PO ONE (07:51)
[2016-11-14] MEDS ORDERED: LORazepam TAB(*) 1 MG ONE (07:54)
[2016-11-14] MEDS ORDERED: Nicotine Inhaler* 10 MG AMP INH PRN (15:47)
[2016-11-14] MEDS ORDERED: Mouth Piece, Nicotine* 1 EACH CARTRIDGE INH SCH (15:47)
[2016-11-14] MEDS ORDERED: Al Hydrox/Mg Hydrox/Simet LIQ* 30 ML UDC PO PRN (15:47)
[2016-11-14] MEDS ORDERED: Acetaminophen TAB* 325 MG PO PRN (15:47)
[2016-11-15] MEDS: Vitamin THERAPEUTIC TAB PO SCH (08:29)
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
[2016-11-16 07:49] VITALS: BP 126/69
[2016-11-16] MEDS: Vitamin THERAPEUTIC TAB PO SCH (08:30)
--- NOTE | 2016-11-16 13:28 | DS ---
Subjective - Subjective Service Types: 04571 Hosp DC Day Mgmt simple under 30 min Subjective: Patient noted to be visible most of the day in the milieu, pleasant, social with peers and attending groups. Patient reports ongoing benefit to mood and easy agitation. Patient denies med s/e's. Patient reports feeling ready for discharge. Patient is A&Ox4, linear and GD in TP, and future oriented in TC. 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 Patient again denies SI/HI and AH/VH. Patient is psychiatrically stable. Discharge plan has been discussed and patient is amenable and acknowledges understanding. Patient instructed to call the crisis hotline, 911, or self present to a local ED if SI recurs. Patient was amenable and acknowledged understanding of family and community supports. Patient will be discharge home with his mother who has come to pick him up Objective - Appearance Appearance: Well Developed/Nourished, Healthy Appearing, Thin Framed Dysmorphic Features: No Hygiene: Normal Grooming: Fairly Well Kept - Behavior Psychomotor Activities: Normal Exhibits Abnormal Movement: No - Attitude and Relatedness Attitude and Relatedness: Cooperative Eye Contact: Good - Speech Quality: Unpressured Latencies: Normal Quantity: Appropriate - Mood Patient's Decription of Mood: "Good" - Affect Observed Affect: Good Affect Consistent with: Euthymia - Thought Process Patient's Thought Process: Coherent Thought Content: No Passive Wish, No Suicidal Planning, No Homicidal Ideation, No Paranoid Ideation - Sensorium Experiencing Hallucinations: No, Sensorium is Clear Type of Hallucinations: Visual: No, Auditory: No, Command: No - Level of Consciousness Level of Consciousness: Alert Orientation: Yes Intact, Yes Orientated to Time, Yes Orientated to Place, Yes Orientated to Person - Impulse Control Impulse Control: Intact - Insight and Judgement Insight and Judgement: Fair - Group Participation Particating in Group Activities: Yes - Medication Management Medication Management Adherence: Yes Treatment Course & Assessment Clinical Course & Impression: HOSPITAL COURSE: Patient is a 26yo male with no significant PPHx. Patient was brought to the [facility] ED on by police after they were called to patient's home by his GF. GF reported to police suicidal statements made by patient including "I just can't deal with it anymore"..."I'm gonna slash my throat". Patient denies making suicidal statements. He does report that he and his GF were in a heated verbal altercation that night. He reports the argument was over his belief that she was cheating. Patient does admit to snorting heroin at the house of a friend prior to coming home and starting this altercation. He reports he'd been upset about his recent arrest this past Monday for possession of marijuana. Patient reports he spent the next day in [facility]. He reports after snorting the Heroin he was consumed with the idea that his GF cheated on him the day he was in [place]. Patient endorses making a statement similar to "I just can't deal with it anymore", but reports he meant their relationship, not living. Police and GF report patient was carrying a knife walking back and forth from his home to his car. 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 On interview, patient is full in affect and linear in TP. He reports no hx of suicide attempt. He is focused on getting home to his GF and 3yo son. Patient denies depression and anxiety. He endorses daily cannabis use, but reports his use of powder heroin on day of presentation was is first. Patient reports no issues with sleep. He denies feelings of hopelessness and helplessness. Patient is employed and upset about losing one of his 2 jobs due to this admission. Patient is interested in paperwork to verify his hospitalization for employers. Patient reports no symptoms of psychosis nor were any elicited on interview. PERTINENT LABS: Laboratory Tests 11/14/16 11/14/16 11/14/16 01:05 01:05 01:05 WBC 8.0 RBC 4.81 Hgb 14.8 Hct 43 MCV 90 MCH 31 MCHC 34 RDW 13 Plt Count 158 MPV 8 Neut % (Auto) 51.2 Lymph % (Auto) 35.5 Bossier % (Auto) 11.0 H Eos % (Auto) 1.9 Baso % (Auto) 0.4 Absolute Neuts (auto) 4.1 Absolute Lymphs (auto) 2.8 Absolute Monos (auto) 0.9 H Absolute Eos (auto) 0.2 Absolute Basos (auto) 0 Absolute Nucleated RBC 0.01 Nucleated RBC % 0.1 Sodium 137 Potassium 3.8 Chloride 103 Carbon Dioxide 27 Anion Gap 7 BUN 13 Creatinine 1.18 H Est GFR ( Amer) 96.0 Est GFR (Non-Af Amer) 74.6 BUN/Creatinine Ratio 11.0 Glucose 125 H Calcium 9.5 Total Bilirubin 0.40 AST 21 ALT 15 Alkaline Phosphatase 46 Total Protein 6.7 Albumin 4.2 Globulin 2.5 Albumin/Globulin Ratio 1.7 TSH 1.23 Urine Color Urine Appearance Urine pH Ur Specific Winfred Urine Protein Urine Ketones Urine Blood Urine Nitrate Urine Bilirubin Urine Urobilinogen Ur Leukocyte Esterase Urine WBC (Auto) Urine RBC (Auto) Urine Bacteria Urine Glucose Urine Ascorbic Acid Salicylates < 2.50 Urine Opiates Screen Presumptive positive H Acetaminophen < 15 Ur Barbiturates Screen None detected Ur Phencyclidine Scrn None detected Ur Amphetamines Screen None detected U Benzodiazepines Scrn None detected Urine Cocaine Screen None detected U Cannabinoids Screen Presumptive positive H Serum Alcohol < 10 11/14/16 01:05 WBC RBC Hgb Hct MCV MCH MCHC RDW Plt Count MPV Neut % (Auto) Lymph % (Auto) Bossier % (Auto) Eos % (Auto) Baso % (Auto) Absolute Neuts (auto) Absolute Lymphs (auto) Absolute Monos (auto) Absolute Eos (auto) Absolute Basos (auto) Absolute Nucleated RBC Nucleated RBC % Sodium Potassium Chloride Carbon Dioxide Anion Gap BUN Creatinine Est GFR ( Amer) Est GFR (Non-Af Amer) BUN/Creatinine Ratio Glucose Calcium Total Bilirubin AST ALT Alkaline Phosphatase Total Protein Albumin Globulin Albumin/Globulin Ratio TSH Urine Color Yellow Urine Appearance Clear Urine pH 5.0 Ur Specific Winfred 1.027 Urine Protein 2+(100 mg/dl) H Urine Ketones Negative Urine Blood Negative Urine Nitrate Negative Urine Bilirubin Negative Urine Urobilinogen Negative Ur Leukocyte Esterase Trace H Urine WBC (Auto) 1+(6-10/hpf) H Urine RBC (Auto) 1+(3-5/hpf) H Urine Bacteria Absent Urine Glucose Negative Urine Ascorbic Acid * H Salicylates Urine Opiates Screen Acetaminophen Ur Barbiturates Screen Ur Phencyclidine Scrn Ur Amphetamines Screen U Benzodiazepines Scrn Urine Cocaine Screen U Cannabinoids Screen Serum Alcohol Consultants: none Discharge Meds: NONE Follow-Up: Appt. for within the next 2 weeks scheduled by TIGRE with provider([facility]). Discharge Planning - Discharge Planning Discharge Plan: Outpatient Follow Up Outpatient Program: [facility] Recommendations for Continuing Care: Psychotherapy, Substance Abuse Counseling Medications: Current Medications Acetaminophen (Tylenol Tab*) 650 mg PO Q4H PRN PRN Reason: PAIN or TEMP > 101 F Al Hydrox/Mg Hydrox/Simethicone (Maalox Plus*) 30 ml PO Q4H PRN PRN Reason: INDIGESTION Device (Nicotine Mouth Piece*) 1 each INH .[facility] Last Admin: 11/14/16 20:25 Dose: 1 each Multivitamins (Theragran Tab*) 1 tab PO DAILY [facility] Last Admin: 11/16/16 08:30 Dose: 1 tab Nicotine (Nicotine Inhaler*) 10 mg INH Q2H PRN PRN Reason: CRAVING Last Admin: 11/15/16 21:19 Dose: 10 mg Discharge Planning: Prescriptions provided for discharge [x] Yes [] No Follow up care details as per social work arrangements. Patient response to discharge plan: [] eager for discharge [x] agreeable with discharge plan [] ambivalent about discharge [] disagrees with discharge today
--- NOTE | 2016-11-16 14:00 | PN ---
MHU: Group Therapy Note - Service Type Service Type: [id number] Group Psychotherapy - Cognitive Behavioral Group Therapy ( CBT):Patient was attentive and participatory in CBT programming this morning, and remained in good behavioral control. Patient expressed positive insights regarding relevant treatment interventions and goals.
--- NOTE | 2016-11-16 15:06 | CONS ---
PSYCHOLOGICAL REPORT: DATE OF CONSULTATION: 11/16/16 DATE OF DICTATION: 11/16/16 REASON FOR REFERRAL: Jaden was referred for psychological testing secondary to concerns regarding possible depression and lethality. TESTS ADMINISTERED: Jaden completed the [place] Multiphasic Personality Inventory-2 (MMPI-2). He was given feedback and individual conversation regarding testing results and was also seen in the context of group cognitive behavioral psychotherapy on 2 occasions by this fiction writer. RELEVANT HISTORY: Jaden is educated through the 9th grade, but has completed a GED by the time he was 16. 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 He has a 3-year-old son with his current girlfriend as well as a recent history of arrest for approximately an ounce of marijuana, which he had in his vehicle when he was pulled over at approximately 3:30 a.m. recently. He describes how the border police explained pulling him over secondary to a light being out on the tail of his car and then smelling marijuana leading to his arrest. After being released, he describes for the first time using powdered heroin before returning home to his girlfriend. He apparently became somewhat paranoid secondary to his intoxication and was fixated on the belief that his girlfriend had cheated on him while he was incarcerated. He began to express suicidal thoughts such as "I am going to slit my throat" and stating other vague statements such as "I just can't deal with this anymore." He denies having had any suicidal intentions and had simply lost his temper in describing his inability to deal with feeling rejected by his girlfriend. Since his admission here, they apparently reconciled and he has been able to describe prosocial goals and interest in both repairing their relationship as well as being an attentive father for the 3-year-old son. He is eager and interested to return to work as well as to his family roles. He reports good insight regarding adverse effects of his drug use and has at least agreed to comply with and take appointment for substance abuse. BEHAVIORAL OBSERVATIONS: Jaden is a 26-year-old male who was attentive and participatory in group programming. He was very interested in discussion of test results, both in terms of clinical interest as well as how conclusions were arrived at. He responded positively to discussion, encouraging primary treatment regarding substance abuse as a primary clinical indication as he does not elevate any clinical indices on this administration of the MMPI-2. TEST RESULTS: Jaden provides a valid protocol on this administration of testing and as aforementioned, has not elevated any of the clinical indices. Discussion reinforced the dangerousness of drug use, particularly heroin and how that can lead to escalating problems including immediate . Jaden was responsive to this discussion and emphasized his interest in being a good father for his son. RECOMMENDATIONS: Reinforced followup with substance abuse counseling as the primary point of interest as he currently is not depressed and does not seem to experience any personality disorder problems in the testing context at least. It is hoped that he will comply with his initial intake and curtail further drug use. IMPRESSION AND RECOMMENDATIONS: Primary diagnosis of polysubstance abuse. Concerns regarding lethality are not apparent in either testing context or in the patient's report of historical difficulties or of current emotional experience. [id number]/CPS #: [id number] MONICA
== END 2016-11-16 13:30 | disposition home or self-care (01) | DRG 755 ==
LOC: ED 00:36 → BSU 16:49
PROVIDERS: ADMIT Psychiatry & Neurology Psychiatry; ATTEND Psychiatry & Neurology Psychiatry
DX: F43.25 Adjustment disorder with mixed disturbance of emotions and conduct (principal); F11.10 Opioid abuse, uncomplicated; F12.10 Cannabis abuse, uncomplicated; Z88.8 Allergy status to other drugs, medicaments and biological substances; Z91.048 Other nonmedicinal substance allergy status; Z79.1 Long term (current) use of non-steroidal anti-inflammatories (NSAID); Z79.899 Other long term (current) drug therapy
CPT/HCPCS: 36415; 80053; 80307; 80320; 80329; 81003; 81015; 84443; 85025; 87086; A9270-GY; G0480

== ENCOUNTER 2017-08-11 19:17 | Emergency (ER) | payer OTHER ==
[2017-08-11 19:28] VITALS: BP 110/65
[2017-08-11] MEDS ORDERED: Penicillin VK TAB* 250 MG PO ONE (19:33)
--- NOTE | 2017-08-11 20:03 | UC ---
Dental HPI - HPI Summary HPI Summary: Patient is a 26-year-old male presenting to the with chief complaint of right upper dental pain 2 weeks. He endorses chills, but denies any fever sweats. He is on Suboxone and has been taking Tylenol and ibuprofen with a mild amount of relief. He states he needs to have his entire upper teeth pulled but is scared and has not made an appointment with a dentist. He is dealing with intermittent dental infections for several years. - History of Current Complaint Chief Complaint: UCDentalProblem Stated Complaint: TOOTH ACHE Time Seen by Provider: 08/11/17 19:20 Hx Obtained From: Patient Onset/Duration: Sudden Onset Severity: Moderate Pain Intensity: 5 Pain Scale Used: 0-10 Numeric - Allergies/Home Medications Allergies/Adverse Reactions: Allergies Allergy/AdvReac Type Severity Reaction Status Date / Time Adhesive Tape Allergy Rash Verified 11/14/16 21:11 meloxicam Allergy Itching Verified 08/11/17 19:23 tramadol Allergy Rash Verified 08/11/17 19:23 Home Medications: Home Medications Acetaminophen [Tylenol] 500 mg PO Q8HR PRN 08/11/17 [History Confirmed 08/11/17] Buprenorphine HCl/Naloxone HCl [Suboxone] 1 mis SL DAILY 08/11/17 [History Confirmed 08/11/17] Gabapentin 300 mg PO TID 08/11/17 [History Confirmed 08/11/17] Ibuprofen [Ibu] 600 mg PO Q8HR PRN 08/11/17 [History Confirmed 08/11/17] PMH/Surg Hx/FS Hx/Imm Hx Previously Healthy: Yes Other History Of: Negative For: HIV, Hepatitis B, Hepatitis C, Anticoagulant Therapy - Surgical History Surgical History: None Surgery Procedure, Year, and Place: SX L WRIST FX. Dental extractions 01/15/14. - Family History Known Family History: Positive: Hypertension, Diabetes Negative: Cardiac Disease Family History: no family history of cardio, pulmonary vascular issues - Social History Occupation: Unemployed Lives: Alone Alcohol Use: Rare Substance Use Type: Prescribed Substance Use Comment - Amount & Last Used: quit marijuana 7 mo ago Smoking Status (MU): Heavy Every Day Tobacco Smoker Type: Cigarettes Amount Used/How Often: 1/2 ppd Length of Time of Smoking/Using Tobacco: 10 yrs Have You Smoked in the Last Year: Yes When Did the Patient Quit Smoking/Using Tobacco: taking Chantix Household Exposure Type: Cigarettes - Immunization History Most Recent Influenza Vaccination: Most Recent Tetanus Shot: 2010 Most Recent Pneumonia Vaccination: Na Review of Systems Constitutional: Negative Skin: Negative ENT: Dental Pain Respiratory: Negative Cardiovascular: Negative Motor: Negative Neurovascular: Negative Neurological: Negative Psychological: Negative Is Patient Immunocompromised?: No All Other Systems Reviewed And Are Negative: Yes Physical Exam Triage Information Reviewed: Yes Appearance: Well-Appearing, Well-Nourished Vital Signs: Initial Vital Signs Temp 99.8 F 08/11/17 19:21 Pulse 67 08/11/17 19:21 Resp 18 08/11/17 19:21 BP 110/65 08/11/17 19:21 Pulse Ox 98 08/11/17 19:21 Vital Signs Reviewed: Yes Eye Exam: Normal Dental: Positive: Percussion Tenderness @ - right upper, Gross Decay/Caries @ - throughout, Dental Fracture @ - throughout, Other: - no obvious signs of infection/abscess Neck exam: Normal Neck: Positive: Supple Cardiovascular Exam: Normal Cardiovascular: Positive: RRR Musculoskeletal Exam: Normal Musculoskeletal: Positive: Strength Intact Neurological Exam: Normal Psychological: Positive: Normal Response To Family Skin Exam: Normal Dental Complaint Course/Dx - Course Course Of Treatment: During the course of treatment, the patient's evaluated for upper dental pain. He denies any radiation of pain. He has been taking ibuprofen and Tylenol without much relief. He has not been on antibiotic. He is not seen a dentist. He states all of his teeth are broken and needs to be pulled. There is no obvious signs of infection, but due to pain, I will place the patient on penicillin 4 times daily 7 days. - Differential Dx/Diagnosis Differential Diagnosis/Dx: Dental Abscess, Dental Caries, Odontogenic Pain Provider Diagnoses: Dental pain Discharge - Sign-Out/Discharge Documenting (check all that apply): Discharge/Admit/Transfer - Discharge Plan Condition: Stable Disposition: HOME Prescriptions: Penicillin VK 500 MG TAB(NF) [Penicillin VK 500 mg Tab(NF)] 500 mg PO QID #28 tab MDD 4 Patient Education Materials: Dental Abscess (ED), Toothache (ED) Referrals: No Primary Care Phys,NOPCP [Primary Care Provider] - Additional Instructions: Penicillin four times daily x 7 days Ambesol over the counter - Billing Disposition and Condition Condition: STABLE Disposition: HOME
== END 2017-08-11 19:35 | disposition home or self-care (01) ==
LOC: UCEAST 19:17
DX: K08.89 Other specified disorders of teeth and supporting structures (principal); Z88.5 Allergy status to narcotic agent; Z88.8 Allergy status to other drugs, medicaments and biological substances; Z91.048 Other nonmedicinal substance allergy status; Z83.3 Family history of diabetes mellitus; Z82.49 Family history of ischemic heart disease and other diseases of the circulatory system; F17.210 Nicotine dependence, cigarettes, uncomplicated
CPT/HCPCS: 99212; A9270-GY; G0463

== ENCOUNTER → 2018-03-15 10:33 | Emergency (ER) | payer OTHER ==
[~2018-03-15 10:33] MED LIST: DOXYcycline CAP(*) 100 MG PO ONE; Lidocaine 1%* 5 ML VIAL ONE; cefTRIAXone VIAL(*) 250 MG VIAL IM ONE
[2018-03-15 11:52] LABS: Urine Appearance Clear; Urine Bilirubin Negative (Negative); Urine Blood Negative (Negative); Urine Color Amber; Urine Glucose Negative (Negative); Urine Ketones Trace (Negative); Urine Nitrite Negative (Negative); Urine Protein Negative (Negative); Urine Specific Gravity 1.026 (1.010-1.030); Urine Urobilinogen Negative (Negative)
--- NOTE | 2018-03-15 12:41 | ED ---
GI/ HPI - HPI Summary HPI Summary: 27-year-old male presents with right testicular pain for the past 2 months. He states the past couple days gotten worse. He states that seems to radiate into his abdomen. He admits to some pain when he finishes urinating. He denies any urgency frequency. No fevers. No nausea vomiting. He states he does have a history of chlamydia. He states that his fianc was just diagnosed with some kind of pelvic infection. - History of Current Complaint Chief Complaint: EDUrogenitalProblems Time Seen by Provider: 03/15/18 11:49 Stated Complaint: GROIN PAIN Pain Intensity: 5 - Additional Pertinent History Primary Care Physician: [id number] - Allergy/Home Medications Allergies/Adverse Reactions: Allergies Allergy/AdvReac Type Severity Reaction Status Date / Time Adhesive Tape Allergy Rash Verified 11/14/16 21:11 meloxicam Allergy Itching Verified 08/11/17 19:23 tramadol Allergy Rash Verified 08/11/17 19:23 PMH/Surg Hx/FS Hx/Imm Hx Endocrine/Hematology History: Denies: Hx Anticoagulant Therapy, Hx Diabetes, Hx Thyroid Disease Cardiovascular History: Denies: Hx Congestive Heart Failure, Hx Deep Vein Thrombosis, Hx Hypertension , Hx Myocardial Infarction, Hx Pacemaker/ICD Respiratory History: Denies: Hx Asthma, Hx Chronic Obstructive Pulmonary Disease (COPD), Hx Lung Cancer, Hx Pneumonia, Hx Pulmonary Embolism GI History: Denies: Hx Gall Bladder Disease, Hx Gastrointestinal Bleed, Hx Ulcer, Hx Urosepsis History: Denies: Hx Kidney Stones, Hx Renal Disease Sensory History: Denies: Hx Contacts or Glasses, Hx Hearing Aid Opthamlomology History: Denies: Hx Contacts or Glasses Neurological History: Denies: Hx Dementia, Hx Migraine, Hx Seizures, Hx Transient Ischemic Attacks (TIA) Psychiatric History: Reports: Hx Substance Abuse Denies: Hx Anxiety, Hx Depression, Hx Schizophrenia, Hx Bipolar Disorder - Surgical History Surgery Procedure, Year, and Place: SX L WRIST FX. Dental extractions 01/15/14. Infectious Disease History: No Infectious Disease History: Denies: Hx Clostridium Difficile, Hx Hepatitis, Hx Human Immunodeficiency Virus (HIV), Hx of Known/Suspected MRSA, Hx Shingles, Hx Tuberculosis, Hx Known/ Suspected VRE, Hx Known/Suspected VRSA, History Other Infectious Disease, Traveled Outside the [place] in Last 30 Days - Family History Known Family History: Positive: Hypertension, Diabetes Negative: Cardiac Disease Family History: no family history of cardio, pulmonary vascular issues - Social History Alcohol Use: Rare Substance Use Type: Reports: Prescribed Substance Use Comment - Amount & Last Used: quit marijuana 7 mo ago Smoking Status (MU): Heavy Every Day Tobacco Smoker Type: Cigarettes Amount Used/How Often: 1/2 ppd Length of Time of Smoking/Using Tobacco: 10 yrs Have You Smoked in the Last Year: Yes Review of Systems Negative: Fever Negative: Chest Pain Negative: Shortness Of Breath Positive: Other - right sided testicular pain Positive: dysuria All Other Systems Reviewed And Are Negative: Yes Physical Exam Triage Information Reviewed: Yes Vital Signs On Initial Exam: Initial Vitals Temp Pulse Resp BP Pulse Ox 98 F 84 18 116/72 97 03/15/18 10:38 03/15/18 10:38 03/15/18 10:38 03/15/18 10:38 03/15/18 10:38 Vital Signs Reviewed: Yes Appearance: Positive: Well-Appearing Skin: Positive: Warm, Dry Head/Face: Positive: Normal Head/Face Inspection Eyes: Positive: Normal, Conjunctiva Clear ENT: Positive: Pharynx normal Respiratory/Lung Sounds: Positive: Clear to Auscultation, Breath Sounds Present Cardiovascular: Positive: Normal, RRR Abdomen Description: Positive: Nontender, Soft Bowel Sounds: Positive: Present Male Genital Exam: Positive: Normal Genitalia, Testicular Tenderness (R) Musculoskeletal: Positive: Normal Neurological: Positive: Normal Psychiatric: Positive: Normal Diagnostics - Vital Signs Vital Signs Temp Pulse Resp BP Pulse Ox 03/15/18 11:57 98.5 F 70 18 110/68 97 03/15/18 10:38 98 F 84 18 116/72 97 - Laboratory Lab Results: Lab Results 03/15/18 Range/Units 11:40 Urine Color Sasha Urine Appearance Clear Urine pH 5.0 (5-9) Ur Specific Niland 1.026 (1.010-1.030) Urine Protein Negative (Negative) Urine Ketones Trace A (Negative) Urine Blood Negative (Negative) Urine Nitrate Negative (Negative) Urine Bilirubin Negative (Negative) Urine Urobilinogen Negative (Negative) Ur Leukocyte Esterase Negative (Negative) Urine Glucose Negative (Negative) Lab Statement: Any lab studies that have been ordered have been reviewed, and results considered in the medical decision making process. - Ultrasound No standard instances Ultrasound Interpretation Completed By: Radiologist Summary of Ultrasound Findings: IMPRESSION: 1. NO TESTICULAR PARENCHYMAL MASS. 2. NO SONOGRAPHIC FEATURES OF TORSION. PLEASE NOTE THAT PARTIAL OR INTERMITTENT TORSION. MAY BE SONOGRAPHICALLY NORMAL. 3. THE RIGHT TESTICLE IS HYPERVASCULAR COMPARED TO THE LEFT WHICH CAN BE SEEN WITH. ORCHITIS. 4. THERE ARE SCATTERED TESTICULAR CALCIFICATIONS BILATERALLY NOT MEETING THE CRITERIA FOR. TESTICULAR MICROLITHIASIS. GIGU Course/Dx - Course Course Of Treatment: 27-year-old male presents with right testicular pain for the past 2 months. He states the past couple days gotten worse. He states that seems to radiate into his abdomen. He admits to some pain when he finishes urinating. He denies any urgency frequency. No fevers. No nausea vomiting. He states he does have a history of chlamydia. He states that his fianc was just diagnosed with some kind of pelvic infection. On exam tenderness over right testicle. Nontender abdomen. Ultrasound shows orchitis. gave dosed Rocephin and will place on doxycycline. Told to follow up with urology. Patient understands agrees plan. - Diagnoses Differential Diagnoses - Male: Orchitis, STD, Urinary Tract Infection Provider Diagnoses: Orchitis Discharge - Sign-Out/Discharge Documenting (check all that apply): Patient Departure - Discharge Plan Condition: Good Disposition: HOME Prescriptions: DOXYcycline CAP(*) [DOXYcycline 100MG CAP(*)] 100 mg PO BID #19 cap Patient Education Materials: Orchitis (ED) Forms: *Work Release Referrals: Sophia Ordoñez MD [Primary Care Provider] - Lázaro West MD [Medical Doctor] - Additional Instructions: take doxycycline twice a day for 10 days follow up with urology Return to ED if develop any new or worsening symptoms - Billing Disposition and Condition Condition: GOOD Disposition: Home
[2018-03-15 12:45] VITALS: BP 113/61
== END | disposition home or self-care (01) ==
LOC: ED 10:33
DX: N50.811 Right testicular pain (principal); F17.210 Nicotine dependence, cigarettes, uncomplicated; N45.2 Orchitis
CPT/HCPCS: 76870; 81003; 87491; 87591; 96372; 99282; A9270-GY; J0696